=== PATIENT | male | born 1985 | race Two or more races ===

== ENCOUNTER 2025-07-09 17:20 | Emergency (ER) | payer OTHER ==
[~2025-07-09] VITALS: Ht 175.3 cm; Wt 83.9 kg
[2025-07-09 19:11] LABS: PLATELET COUNT (AUTO) 339 K/uL (150-450); RED BLOOD CELL COUNT(AUTO) 4.40 MIL/uL (4.5-6.0); RED CELL DISTRIBUTION WIDTH 13.1 % (11.5-15.0); WHITE BLOOD COUNT (AUTO) 7.0 K/uL (4.3-11.0)
[2025-07-09 19:19] LABS: CALCIUM, SERUM 8.7 mg/dL (8.5-10.1); CREATININE 1.0 mg/dL (0.6-1.3); SODIUM SERUM 140 mmol/L (136-145); UREA NITROGEN, BLOOD 21 mg/dL (7-18)
[2025-07-09 19:24] LABS: ALCOHOL, BLOOD < 3 mg/dL (0-10); ASPARTATE AMINOTRANSFERASE 24 U/L (15-37); TOTAL PROTEIN, SERUM 7.2 g/dL (6.4-8.2)
[2025-07-09] MEDS ORDERED: OLANZAPINE 10 MG VIAL IM ONE ×2 (20:29→22:09)
[2025-07-09] MEDS: OLANZAPINE 10 MG VIAL IM ONE ×2 (20:34→22:12)
[2025-07-09] MEDS ORDERED: LORAZEPAM INJ 2 MG/ML VIAL ONE (22:06)
[2025-07-09] MEDS: LORAZEPAM INJ 2 MG/ML VIAL IM ONE (22:10)
[2025-07-10] MEDS ORDERED: LIDOCAINE 2% JEL UROJET 10 ML MM ONE (00:13)
[2025-07-10 00:39] LABS: APPEARANCE,URINE CLEAR (CLEAR); BLOOD, URINE NEGATIVE Ery/uL (NEGATIVE); LEUKOCYTE ESTERASE ,URINE NEGATIVE (NEGATIVE); NITRITE, URINE NEGATIVE (NEGATIVE); UGLUCOSE NEGATIVE (NEGATIVE)
[2025-07-10 01:23] LABS: AMPHETAMINE, URINE NEGATIVE (NEGATIVE); BARBITURATE, URINE NEGATIVE (NEGATIVE); BENZODIAZEPINE, URINE NEGATIVE (NEGATIVE); COCCAINE, URINE NEGATIVE (NEGATIVE); OPIATE, URINE NEGATIVE (NEGATIVE)
[2025-07-10 01:27] LABS: CANNABINOID, URINE POSITIVE (NEGATIVE)
[2025-07-10] MEDS ORDERED: OLANZAPINE 10 MG VIAL IM ONE ×2 (10:28→23:00)
[2025-07-10] MEDS ORDERED: LORAZEPAM INJ 2 MG/ML VIAL ONE ×2 (10:28→22:52)
[2025-07-10] MEDS: LORAZEPAM INJ 2 MG/ML VIAL IM ONE ×2 (10:36→22:55)
[2025-07-10] MEDS: OLANZAPINE 10 MG VIAL IM ONE ×2 (10:36→23:05)
[2025-07-11] MEDS ORDERED: OLANZAPINE 10 MG VIAL IM ONE (03:42)
[2025-07-11] MEDS: OLANZAPINE 10 MG VIAL IM ONE (03:49)
[2025-07-11] MEDS ORDERED: LORAZEPAM INJ 2 MG/ML VIAL ONE (07:04)
[2025-07-11] MEDS: LORAZEPAM INJ 2 MG/ML VIAL IM ONE (07:08)
[2025-07-11 09:28] VITALS: BP 117/78; TEMP 98.6; O2SAT 99
== END 2025-07-11 09:29 ==
LOC: ER 17:23
DX: R45.851 Suicidal ideations (principal); E11.9 Type 2 diabetes mellitus without complications; Z60.2 Problems related to living alone; Z79.899 Other long term (current) drug therapy
CPT/HCPCS: 99291; 96372 ×3; 85025; 80048; 80076; 36415; 80143; 80320; 80307; J2060 ×4; J3490 ×6; J1200; G0480